=== PATIENT | female | born 1950 | race Caucasian/White ===

== ENCOUNTER → 2017-08-31 | Outpatient (CLI) | payer MEDICARE, OTHER ==
[~2017-08-31] MED LIST: ASPI81EC; MULVITA; NAPR500 PO
== END | disposition home or self-care (01) ==
LOC: PLD 07:51 → LAB SHORT 07:51
DX: D48.5 Neoplasm of uncertain behavior of skin (principal)
CPT/HCPCS: 88305

== ENCOUNTER 2018-08-10 12:15 | Inpatient (IN) | payer MEDICARE, OTHER ==
[~2018-08-10] VITALS: Ht 165.1 cm; Wt 65.5 kg
[2018-08-10] MEDS ORDERED: NEBI10 PO (12:32)
[2018-08-10 13:09] LABS: BASOPHILS ABSOLUTE AUTO 0.04 K/mm3 (0.00-0.23); BASOPHILS PERCENT AUTO 1 % (0-2); EOSINOPHILS ABSOLUTE AUTO 0.13 K/mm3 (0.00-0.68); EOSINOPHILS PERCENT AUTO 2 % (0-6); Hematocrit 42.7 % (33.0-51.0); Hemoglobin 13.7 g/dL (11.5-16.0); IMMATURE GRAN ABSOLUTE AUTO 0.03 K/mm3 (0.00-0.10); IMMATURE GRAN PERCENT AUTO 0 % (0-1); LYMPHOCYTES ABSOLUTE AUTO 2.81 K/mm3 (0.84-5.20); LYMPHOCYTES PERCENT AUTO 34 % (21-46); MONOCYTES ABSOLUTE AUTO 0.62 K/mm3 (0.16-1.47); MONOCYTES PERCENT AUTO 7 % (4-13); Mean Corpuscular HGB Conc 32.1 g/dL (31.5-36.5); Mean Corpuscular Volume 93 fL (80-100); Mean Platelet Volume 10.7 fL (9.1-12.4); NEUTROPHILS ABSOLUTE AUTO 4.75 K/mm3 (1.96-9.15); NEUTROPHILS PERCENT AUTO 57 % (41-73); Platelet Count 330 K/mm3 (150-400); RDW Coefficient Variation 13.3 % (11.7-14.2); Red Blood Cell Count 4.57 M/mm3 (3.80-5.20); White Blood Cell Count 8.38 K/mm3 (4.00-11.30)
[2018-08-10 13:26] LABS: Troponin I 0.033 ng/mL (0.000-0.040)
[2018-08-10 13:27] LABS: Alanine Aminotransfer (ALT/SGP 21 U/L (12-78); Albumin, Blood 4.1 g/dL (3.4-5.0); Albumin/Globulin Ratio 1.1 (0.8-1.8); Alk Phos 64 U/L (50-136); Anion Gap 7 mmol/L (6-16); Aspartate Aminotrans (AST/SGOT 17 U/L (12-37); Bilirubin, Total 0.5 mg/dL (0.1-1.0); Blood Urea Nitrogen 14 mg/dL (8-24); Bun/Creatinine Ratio 16.8 (12.0-20.0); CO2, Blood 25 mmol/L (21-32); Calcium, Blood 9.3 mg/dL (8.5-10.1); Chloride, Blood 107 mmol/L (98-108); Creatinine, Blood 0.83 mg/dL (0.40-1.00); Globulin, Blood 3.9 g/dL (2.2-4.0); Glomerular Filtration Rate >60 (60-); Glucose, Blood 153 mg/dL (70-99); Potassium, Blood 3.7 mmol/L (3.5-5.5); Sodium, Blood 139 mmol/L (136-145)
[2018-08-10 18:29] LABS: International Normalized Ratio 0.97; Prothrombin Time Results 10.3 Sec (9.7-11.5)
--- NOTE | 2018-08-10 21:30 | NUR ---
ASSESSMENT PT ADMITTED TO ICU 01, PCU STATUS. PT ARRIVED VIA GURNEY. STOOD AND TRANSFERED SELF TO BED. PT A&O. DENIES PAIN OR DISCOMFORT AT THIS TIME. LUNGS CLEAR ON ROOMAIR. RHINO ROCKET TO LEFT NARE DUE TO BLEEDING. NO BLEEDING AT THIS TIME. HEART RATE REGULAR. BP STABLE. IV 20G TO LEFT AC WITH HEPARIN GTT AT 13 UNITS/KG/MIN. PT MAWE. NO EDEMA. AT BEDSIDE
--- NOTE | 2018-08-11 01:05 | NUR ---
CRITICAL TROPONIN DR CRUZ NOTIFIED REGARDING TROPONIN 7.77. PT DENIES CHEST PAIN OR PRESSURE. VSS. NO BLEEDING NOTED FROM LEFT NARE. NO NEW ORDER, CONT TO MONITOR
[2018-08-11 01:36] LABS: Anion Gap 5 mmol/L (6-16); Blood Urea Nitrogen 15 mg/dL (8-24); Bun/Creatinine Ratio 18.1 (12.0-20.0); CO2, Blood 28 mmol/L (21-32); Calcium, Blood 9.1 mg/dL (8.5-10.1); Chloride, Blood 111 mmol/L (98-108); Creatinine, Blood 0.83 mg/dL (0.40-1.00); Glomerular Filtration Rate >60 (60-); Glucose, Blood 96 mg/dL (70-99); Sodium, Blood 144 mmol/L (136-145)
--- NOTE | 2018-08-11 05:43 | NUR ---
SHIFT SUMMARY PT ADMITTED TO ICU 01, PCU STATUS FOR NSTEMI. DENIES CHEST PAIN. EKG DONE. PT ON HEPARIN GTT AT 15 UNITS/KG/HR. NEXT PTT AT 0730. TROPONIN ELEVATED TO 7.77 DURING THE NIGHT, REPORTED TO DR SORIANO. PT MAY GO TO LEARNING FACILITATOR TODAY WITH DR CHAN. PT TURNING AND MOVING SELF IN BED. RHINO ROCKET TO LEFT NARE FOR A NOSE BLEED SEEN IN ER. NO BLEEDING NOTED. AT BEDSIDE. PT NPO SINCE 0400 FOR IN CASE GOING TO LEARNING FACILITATOR. VSS. REPORT TO ON COMING NURSE
--- NOTE | 2018-08-11 07:31 | NUR ---
0700-ASSUMED CARE OF PT. PT IS ALERT AND ORIENTED. PT HAS BEEN NPO FOR POSSIBLE CATH TODAY. PT IS ON HEPARIN DRIP @ 15 UNITS/KG/HR. 07-LASHAWN, TECHNOLOGY SUPPORT ANALYST RN AT BEDSIDE READY TO TAKE PT TO THE TECHNOLOGY SUPPORT ANALYST. 0718-PT WAS TAKEN TO THE TECHNOLOGY SUPPORT ANALYST AT THIS TIME.
--- NOTE | 2018-08-11 09:10 | NUR ---
0830-PT BACK FROM [facility]W [facility]IN[facility]. R RADIAL ACCESS SITE HAS TR BAND INFLATED WITH 12CC AIR. PALPABLE PULSES NOTED. NO HEMATOMA OR BRUISING NOTED. DENIES NUMBNESS OR TINGLING TO THE R WRIST. PT WILL BE TRANSFERED TO HIGHER LEVEL OF CARE OF BYPASS GRAFT. 0900-DR. CHAN WAS CALLED FOR CLARIFICATION OF MEDICATION ORDERS. HE STATED TO START HEPARIN DRIP ONCE TR BAND IS REMOVED AND NO BLEEDING AND COMPLICATIONS.
--- NOTE | 2018-08-11 10:43 | NUR ---
ECHOCARDIOGRAM COMPLETED
--- NOTE | 2018-08-11 10:47 | NUR ---
STARTED DEFLATING TR BAND WITH 2CC. PULSES ARE PALPABLE. NO BLEEDING NOTED. 1MM DIAMETER OLD DRIED BLOOD NOTED AT THE PUNCTURE SITE-R RADIAL.
--- NOTE | 2018-08-11 12:10 | NUR ---
6 CC AIR LEFT IN TR BAND AT THIS TIME. R RADIAL ACCESS SITE STABLE.
--- NOTE | 2018-08-11 14:23 | NUR ---
TR BAND COMPLETELY DEFLATED AT THIS TIME.
--- NOTE | 2018-08-11 15:03 | NUR ---
DR. SORIANO CAME BY TO SEE PT. UPDATED HIM OF PT'S STATUS.
--- NOTE | 2018-08-11 16:17 | NUR ---
1607-TR BAND IS REMOVED AT THIS TIME. PLACED CLEAR DRESSING TO R RADIAL ACCESS SITE.
--- NOTE | 2018-08-11 17:53 | NUR ---
SHIFT SUMMARY: PT IS ALERT AND ORIENTED. PT DENIES OF CHEST PAIN FOR THE WHOLE DAY. HEPARIN DRIP WAS RESTARTED @ 1707 WITH DOSE OF 15UNITS/KG/HR- WHICH WAS THE PREVIOUS DOSE BEFORE PT WAS TAKEN TO THE PAPER SLITTER THIS MORNING. AFEBRILE. [facility] BUT THERE IS AN ACCEPTING DOCTOR. TR BAND HAS BEEN REMOVED SINCE 1607 THIS AFTERNOON. NO BLEEDING, NO HEMATOMA NOR BRUISING NOTED.
--- NOTE | 2018-08-11 19:30 | NUR ---
ASSUMED CARE OF PT REPORT RCV'D FROM MARTY HARRINGTON RN. PT ALERT AND ORIENTED. PT STATES THAT SHE HAS A SLIGHT HEADACHE AND HER LEFT NARES. RHINO ROCKET IN LEFT NARES DUE TO NOSEBLEED (CHRONIC). HEPARIN INFUSING INTO LAC AT 15 UNITS/KG/MIN, DOSING WT 65 KG. PT AWAITING TRANSFER TO [facility] TO [place] [facility]. SEE FULL SHIFT ASSESSMENT.
--- NOTE | 2018-08-12 06:14 | NUR ---
SHIFT SUMMARY NO ACUTE CHANGES OVERNIGHT. HEPARIN 17 UNITS/KG/HR RUNNING. PT WAS ABLE TO GET A FEW HOURS OF REST AFTER BEING TREATED FOR PAIN IN HER LEFT NARES AND HEADACHE. PT DENIES SOB OR CHESTPAIN OVERNIGHT AND VSS. PT AWAITING TRANSFER TO [facility]. WILL REPORT TO DAYSHIFT NURSE.
[2018-08-12 08:32] LABS: Mean Platelet Volume 10.5 fL (9.1-12.4); Platelet Count 270 K/mm3 (150-400)
--- NOTE | 2018-08-12 08:33 | NUR ---
0700-ASSUMED CARE OF PT. PT IS ALERT AND ORIENTED. DENIES ANY CHEST PAIN AT THIS TIME. SLIGHT HEADACHE. PT IS ON HEPARIN DRIP @ 17 UN1TS/KG/HR. 0715-SPOKE WITH DR. SOSA REGARDING PT'S TRANSFER TO [facility]. NO COBRA TRANSFER FROM DR. CHAN SINCE YESTERDAY. THERE IS AN ACCEPTING DRTomás AT [facility] AND A ROOM. DR. SOSA STATED TO PLACED AN ORDER VERBALLY DR. CHAN HAD STATED IT FROM YESTERDAY. 0820-REPORT WAS GIVEN TO LYLY AVERY IN [place].
--- NOTE | 2018-08-12 09:52 | NUR ---
0915-PT WAS TRANSFERED TO [facility] AT THIS TIME. [facility] WAS NOTIFIED OF THE ETA.
== END 2018-08-12 09:15 | disposition other institution (70) | DRG 282 ==
LOC: ER 12:15 → PCU 18:45 → ERHOLD 18:45 → ICUE 18:45
PROVIDERS: Emergency Medicine; Pharmacist; ADMIT Family Medicine
PROC: B2111ZZ Fluoroscopy of Multiple Coronary Arteries using Low Osmolar Contrast (ICD-10-PCS; principal; 2018-08-11)
DX: I21.4 Non-ST elevation (NSTEMI) myocardial infarction (principal); F17.200 Nicotine dependence, unspecified, uncomplicated; I10 Essential (primary) hypertension; E78.5 Hyperlipidemia, unspecified; G89.29 Other chronic pain; M54.9 Dorsalgia, unspecified; M19.90 Unspecified osteoarthritis, unspecified site; Z79.82 Long term (current) use of aspirin; E78.00 Pure hypercholesterolemia, unspecified; Z91.19 Patient's noncompliance with other medical treatment and regimen
CPT/HCPCS: 30901; 36415; 71046; 76705; 80048; 80053; 83690; 83880; 84484; 85025; 85049; 85610; 85730; 93005; 93010; 93306; 93454; 96365-59; 96366-59; 99152; 99153; 99285-25; C1769; C1894; J1644; J2250; J2270; J3010; J7030; Q9967

== ENCOUNTER → 2023-03-17 | Outpatient (CLI) | payer MEDICARE, OTHER ==
[~2023-03-17] MED LIST changes: +AMLO5 PO; +ATOR20 PO; +Bisoprolol Fuma10 MG PO; +CLOP75 PO; +NEBI10 PO
[2023-03-18 10:55] LABS: Stool Occult Bld Immuno 1 Negative (NEGATIVE)
== END ==
LOC: LAB SHORT 13:05 → LAB 13:05
PROVIDERS: Family Medicine
DX: Z12.11 Encounter for screening for malignant neoplasm of colon (principal)
CPT/HCPCS: G0328

== ENCOUNTER → 2023-09-22 | Outpatient (CLI) | payer MEDICARE, OTHER | END | disposition home or self-care (01) | LOC: LAB 11:19 → LAB SHORT 11:19 | DX: N39.0 Urinary tract infection, site not specified (principal); B96.20 Unspecified Escherichia coli [E. coli] as the cause of diseases classified elsewhere; Z16.11 Resistance to penicillins; Z16.29 Resistance to other single specified antibiotic | CPT/HCPCS: 87077; 87086; 87186 ==

== ENCOUNTER → 2024-01-17 | Outpatient (CLI) | payer MEDICARE, OTHER | LOC: LAB SHORT 10:44 → LAB 10:44 | DX: R30.0 Dysuria (principal) | CPT/HCPCS: 87077; 87086; 87186 ==

== ENCOUNTER 2024-10-30 10:40 | Inpatient (IN) | payer MEDICARE, OTHER ==
[~2024-10-30] VITALS: Ht 165.1 cm; Wt 72.6 kg
[2024-10-30] VITALS (12 sets, daily range): BP systolic 80–140; BP diastolic 54–97
[~2024-10-30 10:40] MED LIST changes: -ASPI81EC; +Aspir 8181 MG PO
[2024-10-30] MEDS ORDERED: HYDROmorphone HCl/Pf 1MG SYR IV PRN ×2 (12:35→19:15)
[2024-10-30] MEDS ORDERED: Ropivacaine 0.5% HCl/Pf 123.125 MG,EPINEPHrine HCL 0.25 MG,Ketorolac Tromethamine 15 MG... INFIL SCH (15:35)
[2024-10-30] MEDS ORDERED: CeFAZolin Sodium 2,000 MG in NS 100 ML IV SCH (15:35)
[2024-10-30] MEDS ORDERED: Tranexamic Acid 100 ML IV SCH (15:35)
[2024-10-30] MEDS ORDERED: Chlorhexidine Mouth Care 15 ML UDC MT SCH (15:55)
[2024-10-30] MEDS ORDERED: Dexamethasone Sod Phos 10 MG/ML 1ML VIAL ONE (16:27)
[2024-10-30] MEDS ORDERED: Ondansetron HCl 2 MG / ML 2ML Vial ONE (16:27)
[2024-10-30] MEDS ORDERED: Midazolam HCl 1MG / ML 2ML Vial ONE (16:30)
[2024-10-30] MEDS ORDERED: FentaNYL Citrate 50 MCG/ML 2 ML Injection ONE (16:30)
[2024-10-30 17:01] LABS: BASOPHILS ABSOLUTE AUTO 0.03 K/mm3 (0.00-0.23); BASOPHILS PERCENT AUTO 0 % (0-2); EOSINOPHILS ABSOLUTE AUTO 0.02 K/mm3 (0.00-0.68); EOSINOPHILS PERCENT AUTO 0 % (0-6); Hematocrit 42.5 % (33.0-51.0); Hemoglobin 14.0 g/dL (11.5-16.0); IMMATURE GRAN ABSOLUTE AUTO 0.05 K/mm3 (0.00-0.10); IMMATURE GRAN PERCENT AUTO 0 % (0-1); LYMPHOCYTES ABSOLUTE AUTO 1.14 K/mm3 (0.84-5.20); LYMPHOCYTES PERCENT AUTO 10 % (21-46); MONOCYTES ABSOLUTE AUTO 0.86 K/mm3 (0.16-1.47); MONOCYTES PERCENT AUTO 7 % (4-13); Mean Corpuscular HGB Conc 32.9 g/dL (31.5-36.5); Mean Corpuscular Volume 92 fL (80-100); NEUTROPHILS ABSOLUTE AUTO 9.81 K/mm3 (1.96-9.15); NEUTROPHILS PERCENT AUTO 82 % (41-73); NRBC ABSOLUTE 0.00 K/mm3 (0.00-0.02); NRBC Auto 0.0 /100 WBC (0.0-0.2); Platelet Count 261 K/mm3 (150-400); RDW Coefficient Variation 13.2 % (11.7-14.2); RDW Standard Deviation 44.7 fL (35.1-46.3)
[2024-10-30 17:43] LABS: Alanine Aminotransfer (ALT/SGP 29.0 U/L (12-78); Albumin, Blood 4.0 g/dL (3.4-5.0); Albumin/Globulin Ratio 1.0 (0.8-1.8); Anion Gap 8.0 mmol/L (3-11); Aspartate Aminotrans (AST/SGOT 20.0 U/L (12-37); Bilirubin, Total 0.7 mg/dL (0.1-1.0); Blood Urea Nitrogen 16.0 mg/dL (8-24); CO2, Blood 27.0 mmol/L (21-32); Calcium, Blood 9.3 mg/dL (8.5-10.1); Chloride, Blood 107.0 mmol/L (98-108); Creatinine, Blood 0.82 mg/dL (0.40-1.00); Globulin, Blood 3.9 g/dL (2.2-4.0); Glucose, Blood 109.0 mg/dL (70-99); Potassium, Blood 4.0 mmol/L (3.5-5.5); Sodium, Blood 138.0 mmol/L (136-145); Total Protein, Blood 7.9 g/dL (6.4-8.2)
[2024-10-30] MEDS ORDERED: ePHEDrine Sulfate 50 MG/ML 1ML Injection ONE (17:47)
[2024-10-30] MEDS ORDERED: HYDROmorphone HCl/Pf 1MG SYR ONE (18:07)
[2024-10-30] MEDS ORDERED: Glycopyrrolate 0.2 MG/ML 5ML VIAL ONE (18:08)
[2024-10-30] MEDS ORDERED: Albuterol 2.5 MG/3 ML VIAL INH PRN (19:15)
[2024-10-30] MEDS ORDERED: ePHEDrine Sulfate 50 MG/ML 1ML Injection IV PRN (19:15)
[2024-10-30] MEDS ORDERED: HydrALAZINE HCl 20 MG / ML 1ML Vial IV PRN (19:15)
[2024-10-30] MEDS ORDERED: FentaNYL Citrate 50 MCG/ML 2 ML Injection IV PRN ×2 (19:15)
[2024-10-30] MEDS ORDERED: Morphine Sulfate 4 MG/1 ML Injection IV PRN (19:20)
[2024-10-30] MEDS ORDERED: Ondansetron HCl 2 MG / ML 2ML Vial IV PRN (19:20)
[2024-10-31 03:42] VITALS: BP 95/60
[2024-10-31 06:12] LABS: Alanine Aminotransfer (ALT/SGP 26.0 U/L (12-78); Albumin, Blood 2.9 g/dL (3.4-5.0); Albumin/Globulin Ratio 0.9 (0.8-1.8); Anion Gap 13.0 mmol/L (3-11); Aspartate Aminotrans (AST/SGOT 31.0 U/L (12-37); Bilirubin, Total 0.6 mg/dL (0.1-1.0); Blood Urea Nitrogen 21.0 mg/dL (8-24); CO2, Blood 21.0 mmol/L (21-32); Calcium, Blood 7.9 mg/dL (8.5-10.1); Chloride, Blood 105.0 mmol/L (98-108); Creatinine, Blood 0.92 mg/dL (0.40-1.00); Globulin, Blood 3.2 g/dL (2.2-4.0); Glucose, Blood 165.0 mg/dL (70-99); Potassium, Blood 4.4 mmol/L (3.5-5.5); Sodium, Blood 135.0 mmol/L (136-145); Total Protein, Blood 6.1 g/dL (6.4-8.2)
[2024-10-31] MEDS ORDERED: OLME20 PO (06:50)
[2024-10-31] MEDS ORDERED: Enoxaparin 40 MG/0.4 ML SYR SC SCH (07:00)
[2024-10-31 07:09] VITALS: BP 106/65
[2024-10-31 08:19] LABS: BASOPHILS ABSOLUTE AUTO 0.02 K/mm3 (0.00-0.23); BASOPHILS PERCENT AUTO 0 % (0-2); EOSINOPHILS ABSOLUTE AUTO 0.00 K/mm3 (0.00-0.68); EOSINOPHILS PERCENT AUTO 0 % (0-6); Hematocrit 31.0 % (33.0-51.0); Hemoglobin 10.2 g/dL (11.5-16.0); IMMATURE GRAN ABSOLUTE AUTO 0.06 K/mm3 (0.00-0.10); IMMATURE GRAN PERCENT AUTO 0 % (0-1); LYMPHOCYTES ABSOLUTE AUTO 0.62 K/mm3 (0.84-5.20); LYMPHOCYTES PERCENT AUTO 4 % (21-46); MONOCYTES ABSOLUTE AUTO 0.98 K/mm3 (0.16-1.47); MONOCYTES PERCENT AUTO 7 % (4-13); Mean Corpuscular HGB Conc 32.9 g/dL (31.5-36.5); Mean Corpuscular Volume 93 fL (80-100); NEUTROPHILS ABSOLUTE AUTO 13.25 K/mm3 (1.96-9.15); NEUTROPHILS PERCENT AUTO 89 % (41-73); NRBC ABSOLUTE 0.00 K/mm3 (0.00-0.02); NRBC Auto 0.0 /100 WBC (0.0-0.2); Platelet Count 225 K/mm3 (150-400); RDW Coefficient Variation 13.2 % (11.7-14.2); RDW Standard Deviation 45.1 fL (35.1-46.3)
[2024-10-31] MEDS ORDERED: HYDROcodone 5-APAP 325 TAB PO PRN (11:10)
[2024-10-31 14:17] VITALS: BP 99/54
--- NOTE | 2024-10-31 17:28 | NUR ---
SHIFT SUMMARY PATIENT POD1 LEFT SHAKEEL HIP. TEGADERM AND TELFA DRESSING C/D/I. WORKS WITH PT AND AMBULATES TO BATHROOM/CHAIR 1 ASSIST FWW, GB. MEDICATED FOR PAIN PER EMAR. TOLERATING PO INTAKE. PLAN FOR HOME DC WITH H/H. VSS.
[2024-10-31 20:49] VITALS: BP 102/64
[2024-11-01 04:39] LABS: BASOPHILS ABSOLUTE AUTO 0.02 K/mm3 (0.00-0.23); BASOPHILS PERCENT AUTO 0 % (0-2); EOSINOPHILS ABSOLUTE AUTO 0.12 K/mm3 (0.00-0.68); EOSINOPHILS PERCENT AUTO 1 % (0-6); Hematocrit 28.5 % (33.0-51.0); Hemoglobin 9.5 g/dL (11.5-16.0); IMMATURE GRAN ABSOLUTE AUTO 0.04 K/mm3 (0.00-0.10); IMMATURE GRAN PERCENT AUTO 0 % (0-1); LYMPHOCYTES ABSOLUTE AUTO 1.12 K/mm3 (0.84-5.20); LYMPHOCYTES PERCENT AUTO 13 % (21-46); MONOCYTES ABSOLUTE AUTO 0.63 K/mm3 (0.16-1.47); MONOCYTES PERCENT AUTO 7 % (4-13); Mean Corpuscular HGB Conc 33.3 g/dL (31.5-36.5); Mean Corpuscular Volume 91 fL (80-100); NEUTROPHILS ABSOLUTE AUTO 6.99 K/mm3 (1.96-9.15); NEUTROPHILS PERCENT AUTO 78 % (41-73); NRBC ABSOLUTE 0.00 K/mm3 (0.00-0.02); NRBC Auto 0.0 /100 WBC (0.0-0.2); Platelet Count 205 K/mm3 (150-400); RDW Coefficient Variation 13.5 % (11.7-14.2); RDW Standard Deviation 45.3 fL (35.1-46.3)
[2024-11-01 04:45] VITALS: BP 113/60
[2024-11-01 04:57] LABS: Alanine Aminotransfer (ALT/SGP 23.0 U/L (12-78); Albumin, Blood 2.9 g/dL (3.4-5.0); Albumin/Globulin Ratio 0.9 (0.8-1.8); Anion Gap 6.0 mmol/L (3-11); Aspartate Aminotrans (AST/SGOT 35.0 U/L (12-37); Bilirubin, Total 0.4 mg/dL (0.1-1.0); Blood Urea Nitrogen 22.0 mg/dL (8-24); CO2, Blood 27.0 mmol/L (21-32); Calcium, Blood 8.1 mg/dL (8.5-10.1); Chloride, Blood 110.0 mmol/L (98-108); Creatinine, Blood 0.92 mg/dL (0.40-1.00); Globulin, Blood 3.3 g/dL (2.2-4.0); Glucose, Blood 122.0 mg/dL (70-99); Potassium, Blood 4.2 mmol/L (3.5-5.5); Sodium, Blood 139.0 mmol/L (136-145); Total Protein, Blood 6.2 g/dL (6.4-8.2)
[2024-11-01 07:18] VITALS: BP 120/70
[2024-11-01] MEDS ORDERED: Norco 5-325 Ta1 EACH PO (09:44)
[2024-11-01] MEDS ORDERED: ACET325 PO (09:44)
[2024-11-01] MEDS ORDERED: XARELTO20 MG PO (10:25)
== END 2024-11-01 10:32 | disposition home health service (06) | DRG 522 ==
LOC: ER 10:40 → SURS 10:41
PROVIDERS: Orthopaedic Surgery; ADMIT Internal Medicine
PROC: 0SRB049 Replacement of Left Hip Joint with Ceramic on Polyethylene Synthetic Substitute, Cemented, Open Approach (ICD-10-PCS; principal; 2024-10-30 16:00)
DX: S72.002A Fracture of unspecified part of neck of left femur, initial encounter for closed fracture (principal); W13.0XXA Fall from, out of or through balcony, initial encounter; I10 Essential (primary) hypertension; E78.00 Pure hypercholesterolemia, unspecified; M81.0 Age-related osteoporosis without current pathological fracture; Y92.008 Other place in unspecified non-institutional (private) residence as the place of occurrence of the external cause; Z88.2 Allergy status to sulfonamides; Z79.82 Long term (current) use of aspirin; Z87.891 Personal history of nicotine dependence; I25.2 Old myocardial infarction; Z95.1 Presence of aortocoronary bypass graft; Z95.820 Peripheral vascular angioplasty status with implants and grafts
CPT/HCPCS: 36415; 51702; 73502; 80053; 85025; 93005; 93010; 94760; 96374; 96375; 97110; 97162; 97530; 99285-25; A9270; C1713; C1776; G0378; J0165; J0690; J0735; J1100; J1171; J1650; J1885; J2250; J2405; J2704; J2795; J3010; J7120

== ENCOUNTER → 2025-04-02 | Outpatient (CLI) | payer MEDICARE, OTHER ==
[~2025-04-02] MED LIST changes: +ACET325 PO; +Norco 5-325 Ta1 EACH PO; +OLME20 PO; +XARELTO20 MG PO
== END | disposition home or self-care (01) ==
LOC: LAB 16:00 → LAB SHORT 16:00
DX: R82.998 Other abnormal findings in urine (principal)
CPT/HCPCS: 87077; 87086; 87186